=== PATIENT | male | born 1955 | race Caucasian/White ===

== ENCOUNTER 2018-12-09 06:54 | Inpatient (IN) | payer OTHER ==
[2018-12-09] MEDS: SOD CHLORIDE 0.9% 1,000 ML IV ×2 (07:00→22:41)
[2018-12-09] MEDS: CEFAZOLIN 2 GM/50 ML (PMX) 50 ML IVPB (07:00)
[2018-12-09 07:50] LABS: ADD MAN DIFF? NO
[2018-12-09 07:57] LABS: BASOPHILS % 0.6 % (0.0-2.0); EOSINOPHILS # 0.3 10^3/ul (0.0-0.5); EOSINOPHILS % 4.2 % (0.0-7.0); HEMATOCRIT 45.4 % (42.0-52.0); HEMOGLOBIN 14.8 g/dl (14.0-18.0); LYMPHOCYTES # 1.8 10^3/ul (0.8-2.9); LYMPHOCYTES % 25.3 % (15.0-51.0); MEAN CORPUSCULAR HEMOGLOBIN 26.5 pg (29.0-33.0); MEAN CORPUSCULAR HGB CONC 32.6 g/dl (32.0-37.0); MEAN CORPUSCULAR VOLUME 81.2 fl (82.0-101.0); MEAN PLATELET VOLUME 9.6 fl (7.4-10.4); MONOCYTE # 0.6 10^3/ul (0.3-0.9); MONOCYTES % 8.5 % (0.0-11.0); NEUTROPHIL # 4.2 10^3/ul (1.6-7.5); NEUTROPHILS % 61.1 % (39.0-77.0); PLATELET COUNT 320 10^3/UL (140-415); RED BLOOD COUNT 5.59 10^6/ul (4.70-6.10); RED CELL DISTRIBUTION WIDTH 13.2 % (11.5-14.5)
[2018-12-09 07:57] LABS: WHITE BLOOD COUNT 6.9 10^3/ul (4.8-10.8)
[2018-12-09 08:15] LABS: INR 0.95; PROTIME 12.8 Sec (11.9-14.9)
[2018-12-09 08:16] LABS: PARTIAL THROMBOPLASTIN TIME 31.3 Sec (23.0-35.0)
[2018-12-09 08:27] LABS: ANION GAP 11 (5-13); BLOOD UREA NITROGEN 17 mg/dl (7-20); CALCIUM 9.8 mg/dl (8.4-10.2); CARBON DIOXIDE 28 mmol/L (21-31); CHLORIDE 104 mmol/L (97-110); CREATININE 1.06 mg/dl (0.61-1.24); Estimated GFR > 60 mL/min (>60); GLUCOSE 107 mg/dl (70-220); POTASSIUM 4.3 mmol/L (3.5-5.1); SODIUM 143 mmol/L (135-144)
[2018-12-09] MEDS ORDERED: SEVOFLURANE 15 MIN (09:48)
[2018-12-09] MEDS ORDERED: MIDAZOLAM 1 MG/ML 2 ML INJ (09:48)
[2018-12-09] MEDS ORDERED: ROCURONIUM 50 MG INJ (09:48)
[2018-12-09] MEDS: BUPIVACAINE 0.25% (MPF) 30 ML INJ (10:24)
[2018-12-09] MEDS ORDERED: CEFAZOLIN 1 GM INJ (11:19)
[2018-12-09] MEDS ORDERED: LIDOCAINE 2% (SDV) 5 ML INJ (11:19)
[2018-12-09] MEDS ORDERED: ONDANSETRON 4 MG INJ (11:20)
[2018-12-09] MEDS ORDERED: PROPOFOL 20 ML (11:20)
[2018-12-09] MEDS ORDERED: GLYCOPYRROLATE 0.4 MG INJ (11:23)
[2018-12-09] MEDS ORDERED: NEOSTIGMINE 10 MG INJ (11:23)
[2018-12-09] MEDS: HYDROCODONE/APAP (5/325) TAB PO ×2 (11:30→14:20)
[2018-12-09] MEDS ORDERED: HYDROmorphONE 1 MG/5 ML IV SYRINGE IV (11:50)
[2018-12-09] MEDS: HYDROmorphONE 1 MG/5 ML IV SYRINGE IV ×5 (11:55→13:26)
[2018-12-09] MEDS ORDERED: LABETALOL HCL 20MG INJ IV (12:00)
[2018-12-09] MEDS ORDERED: DIPHENHYDRAMINE 50 MG INJ IV (12:00)
[2018-12-09] MEDS ORDERED: ONDANSETRON 4 MG INJ IV (12:00)
[2018-12-09] MEDS ORDERED: ALBUTEROL 0.083% (NEB) 2.5 MG/3 ML AMP HHN (12:00)
[2018-12-09] MEDS ORDERED: MEPERIDINE 25 MG INJ IV (12:00)
[2018-12-09] MEDS: FENTAnyl 50 MCG/ML VIAL IV ×3 (12:08→12:31)
[2018-12-09] MEDS ORDERED: FENTAnyl 50 MCG/ML VIAL IV ×2 (12:30)
[2018-12-09] MEDS: KETOROLAC 15 MG INJ IV (12:32)
[2018-12-09] MEDS ORDERED: morphine (1 MG/ML) 10ML SYRINGE IV ×3 (13:30)
[2018-12-09] MEDS ORDERED: morphine 10 MG INJ (13:31)
[2018-12-09] MEDS: METOCLOPRAMIDE 10 MG INJ IV ×2 (15:07→22:07)
[2018-12-09] MEDS: ONDANSETRON 4 MG INJ IV (17:21)
[2018-12-09] MEDS: morphine 4 MG/ML VIAL IV (19:45)
[2018-12-09] MEDS: FAMOTIDINE 20 MG INJ IV (22:07)
[2018-12-10] MEDS ORDERED: METOCLOPRAMIDE 10 MG INJ IV
[2018-12-10] MEDS: ONDANSETRON 4 MG INJ IV ×2 (01:08→07:52)
[2018-12-10] MEDS: morphine 4 MG/ML VIAL IV ×2 (01:12→06:55)
[2018-12-10] MEDS: METOCLOPRAMIDE 10 MG INJ IV ×4 (04:34→22:00)
[2018-12-10 05:14] LABS: ADD MAN DIFF? NO
[2018-12-10 05:15] LABS: BASOPHILS % 0.2 % (0.0-2.0); HEMATOCRIT 40.8 % (42.0-52.0); HEMOGLOBIN 13.5 g/dl (14.0-18.0); LYMPHOCYTES # 0.7 10^3/ul (0.8-2.9); LYMPHOCYTES % 5.5 % (15.0-51.0); MEAN CORPUSCULAR HEMOGLOBIN 26.9 pg (29.0-33.0); MEAN CORPUSCULAR HGB CONC 33.1 g/dl (32.0-37.0); MEAN CORPUSCULAR VOLUME 81.4 fl (82.0-101.0); MEAN PLATELET VOLUME 9.7 fl (7.4-10.4); MONOCYTE # 0.8 10^3/ul (0.3-0.9); NEUTROPHIL # 11.7 10^3/ul (1.6-7.5); NEUTROPHILS % 87.7 % (39.0-77.0); PLATELET COUNT 314 10^3/UL (140-415); RED BLOOD COUNT 5.01 10^6/ul (4.70-6.10)
[2018-12-10 05:15] LABS: WHITE BLOOD COUNT 13.4 10^3/ul (4.8-10.8)
[2018-12-10 05:55] LABS: ANION GAP 9 (5-13); BLOOD UREA NITROGEN 11 mg/dl (7-20); CALCIUM 9.2 mg/dl (8.4-10.2); CARBON DIOXIDE 27 mmol/L (21-31); CHLORIDE 100 mmol/L (97-110); Estimated GFR > 60 mL/min (>60); GLUCOSE 128 mg/dl (70-220); SODIUM 136 mmol/L (135-144)
[2018-12-10 06:01] LABS: POTASSIUM 3.8 mmol/L (3.5-5.1)
[2018-12-10] MEDS: CEFAZOLIN 2 GM/50 ML (PMX) 50 ML IVPB (06:52)
[2018-12-10] MEDS: SOD CHLORIDE 0.9% 1,000 ML IV ×2 (06:59→22:51)
[2018-12-10] MEDS: KETOROLAC 30 MG INJ IV ×2 (09:14→14:58)
[2018-12-10] MEDS: FAMOTIDINE 20 MG INJ IV (09:14)
[2018-12-10 10:29] LABS: ALANINE AMINOTRANSFERASE 122 IU/L (13-69); ALBUMIN 4.1 g/dl (3.3-4.9); ALKALINE PHOSPHATASE 83 IU/L (42-121); ASPARTATE AMINO TRANSFERASE 92 IU/L (15-46); BILIRUBIN,INDIRECT 1.1 mg/dl (0-1.1); BILIRUBIN,TOTAL 1.1 mg/dl (0.2-1.3); TOTAL PROTEIN 6.9 g/dl (6.1-8.1)
[2018-12-10] MEDS: THYROID 30 MG TAB PO (10:59)
[2018-12-10] MEDS: ACETAMINOPHEN 325 MG TAB PO ×2 (16:45→21:45)
[2018-12-11] MEDS: KETOROLAC 30 MG INJ IV ×4 (00:43→20:31)
[2018-12-11] MEDS: METOCLOPRAMIDE 10 MG INJ IV ×5 (04:00→22:00)
[2018-12-11] MEDS: ACETAMINOPHEN 325 MG TAB PO ×5 (05:52→23:32)
[2018-12-11] MEDS: FAMOTIDINE 20 MG INJ IV ×4 (09:00→20:29)
[2018-12-11] MEDS: THYROID 30 MG TAB PO (09:43)
[2018-12-11] MEDS: traMADol 50 MG TAB PO (10:29)
[2018-12-11 10:40] LABS: ADD MAN DIFF? NO
[2018-12-11 10:43] LABS: BASOPHILS % 0.4 % (0.0-2.0); EOSINOPHILS # 0.1 10^3/ul (0.0-0.5); EOSINOPHILS % 1.1 % (0.0-7.0); HEMATOCRIT 42.4 % (42.0-52.0); HEMOGLOBIN 13.6 g/dl (14.0-18.0); LYMPHOCYTES % 9.8 % (15.0-51.0); MEAN CORPUSCULAR HEMOGLOBIN 26.3 pg (29.0-33.0); MEAN CORPUSCULAR HGB CONC 32.1 g/dl (32.0-37.0); MEAN CORPUSCULAR VOLUME 81.9 fl (82.0-101.0); MEAN PLATELET VOLUME 9.6 fl (7.4-10.4); MONOCYTE # 0.9 10^3/ul (0.3-0.9); MONOCYTES % 8.1 % (0.0-11.0); NEUTROPHIL # 8.4 10^3/ul (1.6-7.5); NEUTROPHILS % 80.2 % (39.0-77.0); PLATELET COUNT 294 10^3/UL (140-415); RED BLOOD COUNT 5.18 10^6/ul (4.70-6.10); RED CELL DISTRIBUTION WIDTH 13.2 % (11.5-14.5)
[2018-12-11 10:43] LABS: WHITE BLOOD COUNT 10.5 10^3/ul (4.8-10.8)
[2018-12-11 11:03] LABS: ALANINE AMINOTRANSFERASE 89 IU/L (13-69); ALBUMIN 4.1 g/dl (3.3-4.9); ALBUMIN/GLOBULIN RATIO 1.32; ALKALINE PHOSPHATASE 87 IU/L (42-121); ANION GAP 10 (5-13); ASPARTATE AMINO TRANSFERASE 57 IU/L (15-46); BILIRUBIN,INDIRECT 1.3 mg/dl (0-1.1); BILIRUBIN,TOTAL 1.3 mg/dl (0.2-1.3); BLOOD UREA NITROGEN 11 mg/dl (7-20); CALCIUM 9.1 mg/dl (8.4-10.2); CARBON DIOXIDE 27 mmol/L (21-31); CHLORIDE 103 mmol/L (97-110); CREATININE 0.81 mg/dl (0.61-1.24); Estimated GFR > 60 mL/min (>60); GLUCOSE 117 mg/dl (70-220); POTASSIUM 3.4 mmol/L (3.5-5.1); SODIUM 140 mmol/L (135-144); TOTAL PROTEIN 7.2 g/dl (6.1-8.1)
[2018-12-11] MEDS: SOD CHLORIDE 0.9% 1,000 ML IV (12:20)
[2018-12-11] MEDS: HYDROmorphONE 0.5 MG/0.5 ML SYG IV ×2 (12:22→16:49)
[2018-12-11] MEDS: D5W-0.45 NACL + KCL 20 MEQ 1,000 ML IV ×2 (12:23→22:30)
[2018-12-11] MEDS: ONDANSETRON 4 MG INJ IV (12:26)
[2018-12-12] MEDS: D5W-0.45 NACL + KCL 20 MEQ 1,000 ML IV (00:09)
[2018-12-12] MEDS: ONDANSETRON 4 MG INJ IV (00:28)
[2018-12-12] MEDS: METOCLOPRAMIDE 10 MG INJ IV (00:29)
[2018-12-12] MEDS: HYDROmorphONE 0.5 MG/0.5 ML SYG IV (00:29)
[2018-12-12] MEDS ORDERED: CALCIUM CARBONATE 500 MG CHEW TAB PO (04:30)
[2018-12-12] MEDS: FAMOTIDINE 20 MG INJ IV (08:52)
[2018-12-12] MEDS: THYROID 30 MG TAB PO (08:52)
[2018-12-12] MEDS: KETOROLAC 30 MG INJ IV (08:56)
[2018-12-12 10:03] LABS: ADD MAN DIFF? NO
[2018-12-12 10:07] LABS: BASOPHILS % 0.4 % (0.0-2.0); EOSINOPHILS # 0.2 10^3/ul (0.0-0.5); EOSINOPHILS % 1.6 % (0.0-7.0); HEMATOCRIT 40.1 % (42.0-52.0); HEMOGLOBIN 13.1 g/dl (14.0-18.0); LYMPHOCYTES % 9.7 % (15.0-51.0); MEAN CORPUSCULAR HEMOGLOBIN 26.8 pg (29.0-33.0); MEAN CORPUSCULAR HGB CONC 32.7 g/dl (32.0-37.0); MEAN CORPUSCULAR VOLUME 82.2 fl (82.0-101.0); MEAN PLATELET VOLUME 9.4 fl (7.4-10.4); MONOCYTE # 0.9 10^3/ul (0.3-0.9); MONOCYTES % 8.1 % (0.0-11.0); NEUTROPHIL # 8.5 10^3/ul (1.6-7.5); NEUTROPHILS % 79.9 % (39.0-77.0); PLATELET COUNT 327 10^3/UL (140-415); RED BLOOD COUNT 4.88 10^6/ul (4.70-6.10); RED CELL DISTRIBUTION WIDTH 12.9 % (11.5-14.5)
[2018-12-12 10:07] LABS: WHITE BLOOD COUNT 10.6 10^3/ul (4.8-10.8)
[2018-12-12] MEDS: BISACODYL 10 MG SUPP PR (10:16)
[2018-12-12 10:22] LABS: ALANINE AMINOTRANSFERASE 76 IU/L (13-69); ALBUMIN 4.1 g/dl (3.3-4.9); ALBUMIN/GLOBULIN RATIO 1.24; ALKALINE PHOSPHATASE 91 IU/L (42-121); ANION GAP 11 (5-13); ASPARTATE AMINO TRANSFERASE 42 IU/L (15-46); BILIRUBIN,INDIRECT 1.2 mg/dl (0-1.1); BILIRUBIN,TOTAL 1.2 mg/dl (0.2-1.3); BLOOD UREA NITROGEN 8 mg/dl (7-20); CALCIUM 9.3 mg/dl (8.4-10.2); CARBON DIOXIDE 26 mmol/L (21-31); CHLORIDE 102 mmol/L (97-110); CREATININE 0.84 mg/dl (0.61-1.24); Estimated GFR > 60 mL/min (>60); GLUCOSE 115 mg/dl (70-220); POTASSIUM 3.5 mmol/L (3.5-5.1); SODIUM 139 mmol/L (135-144); TOTAL PROTEIN 7.4 g/dl (6.1-8.1)
[2018-12-12] MEDS: HYDROCODONE/APAP (10/325) TAB PO (12:18)
[2018-12-12] MEDS ORDERED: FAMOTIDINE 20 MG TAB PO (21:00)
== END 2018-12-12 15:15 | disposition home or self-care (01) | DRG 418 ==
LOC: SDS 06:54 → REC 15:50 → MS1 17:37
PROC: 0FT44ZZ Resection of Gallbladder, Percutaneous Endoscopic Approach (ICD-10-PCS; principal; 2018-12-09 09:30)
DX: K80.81 Other cholelithiasis with obstruction (principal); K80.11 Calculus of gallbladder with chronic cholecystitis with obstruction; E03.9 Hypothyroidism, unspecified; N40.0 Benign prostatic hyperplasia without lower urinary tract symptoms; R11.0 Nausea; G89.18 Other acute postprocedural pain; M25.511 Pain in right shoulder
CPT/HCPCS: 71045; 74018; 80048; 80053; 80076; 85025; 85610; 85730; 88304; 93005; 99217